=== PATIENT | male | born 1990 | race Caucasian/White ===

== ENCOUNTER 2024-08-22 22:02 | Emergency (ER) | payer OTHER, SELFPAY ==
--- NOTE | 2024-08-22 22:28 | ED.GENMED ---
History of Present Illness
General
Chief Complaint: Suicidal Ideation
Source: patient and other ([facility] guards)
Time Seen by Provider: 08/22/24 22:16
History of Present Illness
History of Present Illness:
33-year-old male from [facility] here after being found on the jumpsuit wrapped around his neck. Patient denies wanting to but states 'I hear voices,' and when asked if that is what happened the night he states well I sort a guess so.'
He is talking constantly, run-on sentences. He denies any significant neck pain, he is having no trouble swallowing denies a sore throat
I spoke with Devi one of the nurses at [facility] and she states that they do take suicidal [facility]'s back to the [facility] and she just wanted him checked for any neck injuries. She states she does not need any blood work
or urines or any further medical clearance.
Past History
Past History
ED Past Medical History: HTN and Psychiatric (Bipolar)
ED Past Surgical History: Orthopedic
Social History
Tobacco: Smoker
Alcohol: None
Drug: Marijuana and Other (Methamphetamines)
Personal: Single
Employment: Employed
Review of Systems
Review of Systems
Allergies reviewed?: Yes
All Other Systems: ROS reviewed and negative except as documented in HPI and ROS
Constitutional: Denies fever
EENT: Denies sore throat or mouth pain
Respiratory: Denies trouble breathing
Cardiac: Denies chest pain or syncope
ABD/GI: Denies abdominal pain, nausea or vomiting
: Denies dysuria or difficulty voiding
Musculoskeletal: Reports no symptoms; Denies neck pain
Skin: Reports no symptoms
Neurological: Reports no symptoms
Psychiatric: Reports suicidal
Phy Exam
Physical Exam
Physical Exam:
GENERAL: No acute distress. A&Ox3.
CONSTITUTIONAL: Afebrile.
EYES: clear, conjunctivae normal
ENMT: moist mucus membranes, Pharynx nl
RESPIRATORY: Regular respirations, nonlabored, lungs clear.
CARDIOVASCULAR: Regular rate and rhythm, no murmurs, no rubs.
GI: Soft, nontender, normal BS
MUSCULOSKELETAL: Moves with ease. Well perfused.
SKIN: Warm, dry, pink. Skin of neck is without abrasion, redness or swelling
PSYCH: Calm, talking nonstop. Well kept, interactive, cooperative
NEUROLOGIC: Awake, alert and oriented. No focal neurological deficits
Course
Orders/Labs/Results
Orders:
Orders
08/22/24 22:16
Crisis Consult Urgent
Reason for Consult: questionable suicide behaviour
08/22/24 22:25
1:1 Observation - Suicide/ Violent Behavior As Directed
08/22/24 22:15
08/22/24 22:15
MDM/Problems Addressed
Differential Diagnosis Includes:
suicidal behavior
Neck injury
MDM/Problems Addressed:
33-year-old male from [facility] here after being found on the jumpsuit wrapped around his neck. Patient denies wanting to but states 'I hear voices,' and when asked if that is what happened the night he states well I sort a guess so.'
He is talking constantly, run-on sentences. He denies any significant neck pain, he is having no trouble swallowing denies a sore throat
I spoke with Devi one of the nurses at [facility] and she states that they do take suicidal [facility]'s back to the [facility] and she just wanted him checked for any neck injuries. She states she does not need any blood work
or urines or any further medical clearance.
Pt requesting to speak wit Crisis
Crisis in and spoke with pt. Has nothing to add to care, agrees pt can go back to facility
No significant injury
Pt stable for discharge back to [facility]
*Critical Care Note
Total Time (30-74mins, 75-104mins- exclusive of procedures): Not Applicable
ED Attending Note
-
Portions of this chart may have been created with voice recognition software.� Occasional wrong word or��sound alike� substitutions may have occurred due to the inherent limitations of voice recognition software.
Discharge Plan
Departure
Patient Disposition: Assisted
Date of Disposition: 08/22/24
Time of Disposition: 23:01
Condition: Good
Discharge Problem:
Suicidal behavior with attempted self-injury
Instructions: Suicide Prevention
Prescriptions:
No Action
aripiprazole 10 MG tablet
10 mg PO DAILY Qty: 30 0RF
hydroxyzine pamoate [Vistaril] 25 MG capsule
25 mg PO BIDPRN PRN (Reason: anxiety) Qty: 20 0RF
Referrals:
[facility] [Family Provider] -
Activity Restrictions/Additional Instructions:
Yunior need suicidal precautions, otherwise medically cleared to return to [facility].
Interventions
Interventions:
*Risk Screen - Suicide Last Done: 08/22/24 22:04
*General Assessment Last Done: 08/22/24 22:04
*Neglect/Abuse Screening Last Done: 08/22/24 22:04
ED- Fall Risk Assessment Last Done: 08/22/24 22:04
*ED COVID-19 Vaccine History Last Done: 08/22/24 22:04
*Nursing Disposition Last Done: 08/22/24 23:14
ED-Psychological Assessment Last Done: 08/22/24 22:43
Discharge Date and Time
Discharge Date/Time: 08/22/24 23:15
Print Language: GAMBIAN
== END 2024-08-22 23:15 ==
LOC: EMR 22:02
PROVIDERS: EMERGENCY PHYSICIAN Emergency Medicine
DX: T14.91XA Suicide attempt, initial encounter (principal); X83.8XXA Intentional self-harm by other specified means, initial encounter; Z91.51 Personal history of suicidal behavior; F17.200 Nicotine dependence, unspecified, uncomplicated; F31.9 Bipolar disorder, unspecified; I10 Essential (primary) hypertension
CPT/HCPCS: 99283